=== PATIENT | female | born 1955 | race Caucasian/White ===

== ENCOUNTER 2018-09-15 13:13 | Emergency (ER) | payer SELFPAY | END 2018-09-15 13:50 | disposition left against medical advice (07) | LOC: UCEAST 13:13 | DX: T14.8XXA Other injury of unspecified body region, initial encounter (principal); W57.XXXA Bitten or stung by nonvenomous insect and other nonvenomous arthropods, initial encounter; Y92.9 Unspecified place or not applicable; Z53.21 Procedure and treatment not carried out due to patient leaving prior to being seen by health care provider ==